=== PATIENT | female | born 1970 | race Caucasian/White ===

== ENCOUNTER 2017-11-28 11:09 | Emergency (ER) | payer OTHER ==
[2017-11-28 11:22] VITALS: RESP 18
--- NOTE | 2017-11-28 11:33 | ED ---
General Adult HPI - General Chief complaint: Anxiety Stated complaint: mental health Time Seen by Provider: 11/28/17 11:23 Source: patient, RN notes reviewed, old records reviewed Mode of arrival: ambulatory Limitations: no limitations - History of Present Illness Initial comments: 47-year-old female presents for alcohol abuse and anxiety. She is brought to emergency department after being urged by her family members to seek medical attention. She specifically denies suicidal ideation however her family member state that she has been suicidal and her family has completed a petition for mental health evaluation. Patient states her last drink was 48 hours ago. She denies any suicide attempt. She denies homicidal ideation. An admitted both for alcohol abuse and psychiatric reasons in the past. - Related Data Home Medications Medication Instructions Recorded Confirmed No Known Home Medications [No 11/28/17 11/28/17 Known Home Medications] Allergies Allergy/AdvReac Type Severity Reaction Status Date / Time No Known Allergies Allergy Verified 11/28/17 11:46 Review of Systems ROS Statement: Those systems with pertinent positive or pertinent negative responses have been documented in the HPI. ROS Other: All systems not noted in ROS Statement are negative. Past Medical History Past Medical History: Liver Disease History of Any Multi-Drug Resistant Organisms: None Reported Past Surgical History: No Surgical Hx Reported Past Psychological History: No Psychological Hx Reported Smoking Status: Current every day smoker Past Alcohol Use History: Abuse, Daily, Heavy Past Drug Use History: Cocaine, Marijuana, Methamphetamine General Exam Limitations: no limitations General appearance: alert, in no apparent distress Head exam: Present: atraumatic, normocephalic Eye exam: Present: normal appearance, PERRL ENT exam: Present: other (Saddle deformity) Neck exam: Present: normal inspection. Absent: tenderness, meningismus Respiratory exam: Present: normal lung sounds bilaterally. Absent: respiratory distress, wheezes Cardiovascular Exam: Present: regular rate, normal rhythm GI/Abdominal exam: Present: soft. Absent: distended, tenderness, guarding Extremities exam: Present: normal inspection, full ROM Neurological exam: Present: alert, oriented X3, CN II-XII intact. Absent: motor sensory deficit Psychiatric exam: Present: normal affect, normal mood Skin exam: Present: warm, dry, intact. Absent: cyanosis, diaphoretic Course Vital Signs 11/28/17 11:20 Temperature 98.5 F Pulse Rate 93 Respiratory 18 Rate Blood Pressure 159/80 O2 Sat by Pulse 98 Oximetry Medical Decision Making - Medical Decision Making 47-year-old female brought in for evaluation of alcohol abuse and concerns by her sister for mental health evaluation. Patient denies suicidal ideation. She is clinically sober and alert and oriented. She was evaluated by EPS secondary to petition that her sister filled out. She is cleared for mental health standpoint. She is given outpatient referral information for both community mental health and alcohol rehabilitation. I did reevaluate the patient, she continues to deny suicidal ideation. She is alert and oriented. She has no signs of alcohol withdrawal. She will be discharged home with outpatient follow-up. - Lab Data Lab Results 11/28/17 11/28/17 Range/Units 11:59 11:59 Urine HCG, Qual Not Detected (Not Detectd) Urine Opiates Screen Not Detected (NotDetected) Ur Oxycodone Screen Not Detected (NotDetected) Urine Methadone Screen Not Detected (NotDetected) Ur Propoxyphene Screen Not Detected (NotDetected) Ur Barbiturates Screen Not Detected (NotDetected) U Tricyclic Antidepress Not Detected (NotDetected) Ur Phencyclidine Scrn Not Detected (NotDetected) Ur Amphetamines Screen Not Detected (NotDetected) U Methamphetamines Scrn Not Detected (NotDetected) U Benzodiazepines Scrn Detected H (NotDetected) Urine Cocaine Screen Not Detected (NotDetected) U Marijuana (THC) Screen Not Detected (NotDetected) Disposition Clinical Impression: Alcohol abuse Disposition: HOME SELF-CARE Condition: Fair Instructions: Abuse of Alcohol (ED) Additional Instructions: Please follow up with community mental health, use resources for possible inpatient alcohol rehabilitation. Is patient prescribed a controlled substance at d/c from ED?: No Referrals: Robbin Casas MD [Primary Care Provider] - 1-2 days Time of Disposition: 14:46
[2017-11-28 12:26] LABS: Amphetamine Screen,Urine Not Detected (NotDetected); Barbiturate Screen,Urine Not Detected (NotDetected); Benzodiazepines Screen,Urine Detected (NotDetected); Cocaine Screen,Urine Not Detected (NotDetected); Methadone Screen, Urine Not Detected (NotDetected); Opiate Screen,Urine Not Detected (NotDetected); Oxycodone Screen, Urine Not Detected (NotDetected); Phencyclidine Screen,Urine Not Detected (NotDetected); Tricyclic Antidepressant,Urine Not Detected (NotDetected); Urn Cannabinoid Scrn Not Detected (NotDetected)
[2017-11-28 15:11] VITALS: BP 151/67; PULSE 89; TEMP 98.7
== END 2017-11-28 15:09 | disposition home or self-care (01) ==
LOC: EC 11:09
DX: F10.10 Alcohol abuse, uncomplicated (principal); F41.9 Anxiety disorder, unspecified; M95.0 Acquired deformity of nose; F17.200 Nicotine dependence, unspecified, uncomplicated
CPT/HCPCS: 80306; 81025; 82075; 99284

== ENCOUNTER 2018-06-19 09:38 | Inpatient (IN) | payer OTHER ==
--- NOTE | 2018-06-19 11:09 | XR ---
EXAMINATION TYPE: XR chest 1V DATE OF EXAM: 06/19/2018 COMPARISON: Abdomen same date HISTORY: Chest pain TECHNIQUE: Single frontal view of the chest is obtained. FINDINGS: There is no pleural effusion or pneumothorax seen. Minimal patchy density suspected lung b ases. The cardiac silhouette size is within normal limits. The osseous structures are intact. IMPRESSION: Probable subsegmental basilar atelectasis, follow-up PA and lateral chest x-ray may be o f benefit.
[2018-06-19 11:16] LABS: Appearance,Urine Clear (Clear); Bilirubin,Urine Negative (Negative); Blood,Urine Negative (Negative); Color,Urine Yellow; Glucose,Urine (UA) Negative (Negative); Ketones,Urine Negative (Negative); Leukocyte Esterase,Urine Negative (Negative); Nitrite,Urine Negative (Negative); PH, Urine 5.5 (5.0-8.0); Protein,Urine Negative (Negative); Specific Gravity,Urine 1.005 (1.001-1.035); Urobilinogen,Urine <2.0 mg/dL (<2.0)
[2018-06-19 11:19] LABS: INR 1.2 (<1.2); Partial Thromboplastin Time 29.5 sec (22.0-30.0); Prothrombin Time 12.7 sec (9.0-12.0)
--- NOTE | 2018-06-19 11:20 | XR ---
Abdomen HISTORY: Pain Frontal view of the abdomen submitted on 2 images. Lung bases show some questionable minimal subsegmental atelectatic changes. There are some air-fluid levels without bowel distention. No pneumoperitoneum. No pathologic calcification. Bone mineralizatio n is normal. There is a spinal curvature. IMPRESSION: There may be underlying ileus or enteritis, follow-up as indicated.
--- NOTE | 2018-06-19 11:25 | ED ---
Alcohol HPI - General Chief Complaint: Alcohol Stated Complaint: altered mental status Time Seen by Provider: 06/19/18 09:43 Source: patient, RN notes reviewed Mode of arrival: wheelchair Limitations: altered mental status - History of Present Illness Initial Comments: 47-year-old female presents emergency Department chief complaint of needing her belly drained. Patient states that she has cirrhosis and states that she is an alcoholic. Patient continues drinking daily just got out of rehab. Patient states her legs are swollen, and abdomen is swollen. Patient states that she's had paracentesis in the past. Patient denies any chest pain, shortness breath. Patient does admit to prior cocaine use. Denies any recent use. Patient has no dysuria no hematuria denies any diarrhea constipation. Patient states that symptoms are consistent with prior. - Related Data Home Medications Medication Instructions Recorded Confirmed No Known Home Medications 11/28/17 06/19/18 Allergies Allergy/AdvReac Type Severity Reaction Status Date / Time No Known Allergies Allergy Verified 06/19/18 09:54 Review of Systems ROS Statement: Those systems with pertinent positive or pertinent negative responses have been documented in the HPI. ROS Other: All systems not noted in ROS Statement are negative. Past Medical History Past Medical History: Liver Disease History of Any Multi-Drug Resistant Organisms: None Reported Past Surgical History: No Surgical Hx Reported Past Psychological History: No Psychological Hx Reported Smoking Status: Current every day smoker Past Alcohol Use History: Abuse, Daily, Heavy Past Drug Use History: Cocaine, Marijuana, Methamphetamine General Exam Limitations: altered mental status Course Vital Signs 06/19/18 09:38 Temperature 97.4 F L Pulse Rate 77 Respiratory 18 Rate Blood Pressure 175/85 O2 Sat by Pulse 100 Oximetry Medical Decision Making - Medical Decision Making 47-year-old female presented for multiple complaints. Patient lab work, x-ray. Patient will be admitted for alcohol intoxication, acute pancreatitis, liver failure with ascites - Lab Data Result diagrams: 06/19/18 10:30 06/19/18 10:30 Lab Results 06/19/18 06/19/18 06/19/18 Range/Units 10:30 10:30 10:30 WBC 3.9 (3.8-10.6) k/uL RBC 3.94 (3.80-5.40) m/uL Hgb 12.8 (11.4-16.0) gm/dL Hct 40.2 (34.0-46.0) % MCV 101.9 H (80.0-100.0) fL MCH 32.6 (25.0-35.0) pg MCHC 32.0 (31.0-37.0) g/dL RDW 15.9 H (11.5-15.5) % Plt Count 60 L (150-450) k/uL Neutrophils % 54 % Lymphocytes % 33 % Monocytes % 7 % Eosinophils % 2 % Basophils % 1 % Neutrophils # 2.1 (1.3-7.7) k/uL Lymphocytes # 1.3 (1.0-4.8) k/uL Monocytes # 0.3 (0-1.0) k/uL Eosinophils # 0.1 (0-0.7) k/uL Basophils # 0.1 (0-0.2) k/uL Manual Slide Review Performed RBC Morphology Normal Macrocytosis Slight PT (9.0-12.0) sec INR (<1.2) APTT (22.0-30.0) sec Sodium 146 H (137-145) mmol/L Potassium 4.0 (3.5-5.1) mmol/L Chloride 113 H (98-107) mmol/L Carbon Dioxide 26 (22-30) mmol/L Anion Gap 7 mmol/L BUN 10 (7-17) mg/dL Creatinine 0.70 (0.52-1.04) mg/dL Est GFR (CKD-EPI)AfAm >90 (>60 ml/min/1.73 sqM) Est GFR (CKD-EPI)NonAf >90 (>60 ml/min/1.73 sqM) Glucose 105 H (74-99) mg/dL Calcium 8.5 (8.4-10.2) mg/dL Total Bilirubin 1.6 H (0.2-1.3) mg/dL AST 109 H (14-36) U/L ALT 46 (9-52) U/L Alkaline Phosphatase 268 H (38-126) U/L Ammonia 32 H (<30) umol/L Total Protein 7.5 (6.3-8.2) g/dL Albumin 3.8 (3.5-5.0) g/dL Lipase 1011 H (23-300) U/L Urine Color Urine Appearance (Clear) Urine pH (5.0-8.0) Ur Specific [place] (1.001-1.035) Urine Protein (Negative) Urine Glucose (UA) (Negative) Urine Ketones (Negative) Urine Blood (Negative) Urine Nitrite (Negative) Urine Bilirubin (Negative) Urine Urobilinogen (<2.0) mg/dL Ur Leukocyte Esterase (Negative) Urine Opiates Screen (NotDetected) Ur Oxycodone Screen (NotDetected) Urine Methadone Screen (NotDetected) Ur Propoxyphene Screen (NotDetected) Ur Barbiturates Screen (NotDetected) U Tricyclic Antidepress (NotDetected) Ur Phencyclidine Scrn (NotDetected) Ur Amphetamines Screen (NotDetected) U Methamphetamines Scrn (NotDetected) U Benzodiazepines Scrn (NotDetected) Urine Cocaine Screen (NotDetected) U Marijuana (THC) Screen (NotDetected) Serum Alcohol 369 H* mg/dL 06/19/18 06/19/18 Range/Units 10:30 10:37 WBC (3.8-10.6) k/uL RBC (3.80-5.40) m/uL Hgb (11.4-16.0) gm/dL Hct (34.0-46.0) % MCV (80.0-100.0) fL MCH (25.0-35.0) pg MCHC (31.0-37.0) g/dL RDW (11.5-15.5) % Plt Count (150-450) k/uL Neutrophils % % Lymphocytes % % Monocytes % % Eosinophils % % Basophils % % Neutrophils # (1.3-7.7) k/uL Lymphocytes # (1.0-4.8) k/uL Monocytes # (0-1.0) k/uL Eosinophils # (0-0.7) k/uL Basophils # (0-0.2) k/uL Manual Slide Review RBC Morphology Macrocytosis PT 12.7 H (9.0-12.0) sec INR 1.2 H (<1.2) APTT 29.5 (22.0-30.0) sec Sodium (137-145) mmol/L Potassium (3.5-5.1) mmol/L Chloride (98-107) mmol/L Carbon Dioxide (22-30) mmol/L Anion Gap mmol/L BUN (7-17) mg/dL Creatinine (0.52-1.04) mg/dL Est GFR (CKD-EPI)AfAm (>60 ml/min/1.73 sqM) Est GFR (CKD-EPI)NonAf (>60 ml/min/1.73 sqM) Glucose (74-99) mg/dL Calcium (8.4-10.2) mg/dL Total Bilirubin (0.2-1.3) mg/dL AST (14-36) U/L ALT (9-52) U/L Alkaline Phosphatase (38-126) U/L Ammonia (<30) umol/L Total Protein (6.3-8.2) g/dL Albumin (3.5-5.0) g/dL Lipase (23-300) U/L Urine Color Yellow Urine Appearance Clear (Clear) Urine pH 5.5 (5.0-8.0) Ur Specific [place] 1.005 (1.001-1.035) Urine Protein Negative (Negative) Urine Glucose (UA) Negative (Negative) Urine Ketones Negative (Negative) Urine Blood Negative (Negative) Urine Nitrite Negative (Negative) Urine Bilirubin Negative (Negative) Urine Urobilinogen <2.0 (<2.0) mg/dL Ur Leukocyte Esterase Negative (Negative) Urine Opiates Screen Not Detected (NotDetected) Ur Oxycodone Screen Not Detected (NotDetected) Urine Methadone Screen Not Detected (NotDetected) Ur Propoxyphene Screen Not Detected (NotDetected) Ur Barbiturates Screen Not Detected (NotDetected) U Tricyclic Antidepress Not Detected (NotDetected) Ur Phencyclidine Scrn Not Detected (NotDetected) Ur Amphetamines Screen Not Detected (NotDetected) U Methamphetamines Scrn Not Detected (NotDetected) U Benzodiazepines Scrn Not Detected (NotDetected) Urine Cocaine Screen Not Detected (NotDetected) U Marijuana (THC) Screen Not Detected (NotDetected) Serum Alcohol mg/dL Disposition Clinical Impression: Alcoholic intoxication, Liver failure, Ascites, Acute pancreatitis Disposition: ADMITTED IP TO THIS [facility] Condition: Fair Referrals: Robbin Casas MD [Primary Care Provider] - 1-2 days
[2018-06-19 11:26] LABS: Amphetamine Screen,Urine Not Detected (NotDetected); Barbiturate Screen,Urine Not Detected (NotDetected); Benzodiazepines Screen,Urine Not Detected (NotDetected); Cocaine Screen,Urine Not Detected (NotDetected); Methadone Screen, Urine Not Detected (NotDetected); Opiate Screen,Urine Not Detected (NotDetected); Oxycodone Screen, Urine Not Detected (NotDetected); Phencyclidine Screen,Urine Not Detected (NotDetected); Tricyclic Antidepressant,Urine Not Detected (NotDetected); Urn Cannabinoid Scrn Not Detected (NotDetected)
[2018-06-19 11:26] LABS: ALT 46 U/L (9-52); AST 109 U/L (14-36); Albumin 3.8 g/dL (3.5-5.0); Alkaline Phosphatase 268 U/L (38-126); Anion Gap 7 mmol/L; Blood Urea Nitrogen 10 mg/dL (7-17); Calcium 8.5 mg/dL (8.4-10.2); Carbon Dioxide 26 mmol/L (22-30); Chloride 113 mmol/L (98-107); Glucose 105 mg/dL (74-99); Lipase 1011 U/L (23-300); Sodium 146 mmol/L (137-145); Total Bilirubin 1.6 mg/dL (0.2-1.3); Total Protein 7.5 g/dL (6.3-8.2)
[2018-06-19 11:37] LABS: Alcohol 369 mg/dL
[2018-06-19 11:47] LABS: Basophils # (A) 0.1 k/uL (0-0.2); Basophils % (A) 1 %; Eosinophils # (A) 0.1 k/uL (0-0.7); Eosinophils % (A) 2 %; HCT 40.2 % (34.0-46.0); HGB 12.8 gm/dL (11.4-16.0); Lymphocytes # (A) 1.3 k/uL (1.0-4.8); Lymphocytes % (A) 33 %; MCH 32.6 pg (25.0-35.0); MCV 101.9 fL (80.0-100.0); Macrocytosis Slight; Mean Platelet Volume 7.5; Monocytes # (A) 0.3 k/uL (0-1.0); Monocytes % (A) 7 %; Neutrophils # (A) 2.1 k/uL (1.3-7.7); Neutrophils % (A) 54 %; RBC 3.94 m/uL (3.80-5.40); RDW 15.9 % (11.5-15.5); WBC 3.9 k/uL (3.8-10.6)
[2018-06-19 12:14] LABS: Platelet Count 60 k/uL (150-450)
[2018-06-19] MEDS ORDERED: SODIUM CHLORIDE 0.9% 1,000 ML with MVI, ADULT NO.4 WITH VIT K 10 ML, THIAMINE 100 MG, F... IV ONE ×4 (12:16)
[2018-06-19] MEDS ORDERED: LORazepam 2 MG/ML INJ IV PRN ×2 (12:16)
[2018-06-19] MEDS ORDERED: ONDANSETRON 4 MG/2 ML VIAL IVP PRN (12:18)
[2018-06-19] MEDS ORDERED: NALOXONE 0.4 MG/ML 1 ML VIAL IV PRN (12:18)
[2018-06-19] MEDS ORDERED: PANTOPRAZOLE 40 MG/10 ML VIAL IVP SCH (15:00)
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
--- NOTE | 2018-06-19 16:36 | US ---
EXAMINATION TYPE: US abdomen limited DATE OF EXAM: 06/19/2018 COMPARISON: NONE CLINICAL HISTORY: 47-year-old female distended abdomen, assess for ascites. TECHNIQUE: Multiple sonographic images of the 4 abdominal quadrants for assessment of ascites fluid. FINDINGS: All 4 quadrants scanned, no free fluid identified. Borderline enlarged spleen noted at 13.6 cm. IMPRESSION: No abdominal ascites identified. Borderline splenomegaly at 13.6 cm.
[2018-06-19] MEDS: THIAMINE 100 MG TAB PO SCH (17:58)
[2018-06-19] MEDS: LORazepam 2 MG/ML INJ IV PRN ×2 (18:07→22:09)
[2018-06-19] MEDS: FUROSEMIDE 10 MG/ML 4 ML VIAL IV SCH (22:09)
[2018-06-19] MEDS: PANTOPRAZOLE 40 MG/10 ML VIAL IVP SCH (22:09)
[2018-06-20] MEDS: LORazepam 2 MG/ML INJ IV PRN ×5 (03:53→21:34)
[2018-06-20] MEDS: PANTOPRAZOLE 40 MG/10 ML VIAL IVP SCH (08:23)
[2018-06-20] MEDS: FUROSEMIDE 10 MG/ML 4 ML VIAL IV SCH ×2 (08:23→21:34)
[2018-06-20 08:29] LABS: ALT 41 U/L (9-52); AST 94 U/L (14-36); Albumin 3.3 g/dL (3.5-5.0); Alkaline Phosphatase 201 U/L (38-126); Anion Gap 5 mmol/L; Blood Urea Nitrogen 10 mg/dL (7-17); Calcium 8.2 mg/dL (8.4-10.2); Carbon Dioxide 30 mmol/L (22-30); Chloride 108 mmol/L (98-107); Glucose 76 mg/dL (74-99); Potassium 4.1 mmol/L (3.5-5.1); Sodium 143 mmol/L (137-145); Total Bilirubin 2.3 mg/dL (0.2-1.3)
--- NOTE | 2018-06-20 11:45 | P.PN ---
Subjective Patient is admitted for alcohol overdose on alcohol withdrawal. Patient is being treated for alcoholic gastritis as well. Patient is coming of generalized body aches will obtain influenza testing. Patient's abdominal ultrasound did not show much of ascites will continue with Lasix for mild the volume overload repeat developed lites tomorrow. Once her withdrawals are better patient will be discharged home counseling regarding alcohol use was provided. Constitutional: Bit tired Cardio vascular: denied any chest pain, palpitations Gastrointestinal denied any nausea vomiting Pulmonary: Denied any shortness of breath cough Neurologic denied any new focal deficits All inpatient medications were reviewed and appropriate changes in these medications as dictated in the interval history and assessment and plan. Objective - Vital Signs Vital signs: Vital Signs Temp 98.3 F 06/20/18 11:33 Pulse 86 06/20/18 11:33 Resp 17 06/20/18 11:33 BP 161/85 06/20/18 11:33 Pulse Ox 95 06/20/18 11:33 Intake & Output 06/19/18 06/20/18 06/20/18 18:59 06:59 18:59 Weight 72.575 kg Other: # Voids 5 - Exam PHYSICAL EXAMINATION: GENERAL: The patient is alert and oriented x3, not in any acute distress. Well developed, well nourished. Does have some withdrawals and requiring Ativan often HEENT: Pupils are round and equally reacting to light. EOMI. No scleral icterus. No conjunctival pallor. Normocephalic, atraumatic. No pharyngeal erythema. No thyromegaly. CARDIOVASCULAR: S1 and S2 present. No murmurs, rubs, or gallops. PULMONARY: Chest is clear to auscultation, no wheezing or crackles. ABDOMEN: Soft, distended but with positive shifting dullness does have mild bilateral pedal edema MUSCULOSKELETAL: No joint swelling or deformity. EXTREMITIES: No cyanosis, clubbing, NEUROLOGICAL: Gross neurological examination did not reveal any focal deficits. SKIN: No rashes. - Labs CBC & Chem 7: 06/19/18 10:30 06/20/18 06:38 Labs: Abnormal Lab Results - Last 24 Hours (Table) 06/19/18 06/20/18 Range/Units 10:30 06:38 MCV 101.9 H (80.0-100.0) fL RDW 15.9 H (11.5-15.5) % Plt Count 60 L (150-450) k/uL Chloride 108 H (98-107) mmol/L Calcium 8.2 L (8.4-10.2) mg/dL Total Bilirubin 2.3 H (0.2-1.3) mg/dL AST 94 H (14-36) U/L Alkaline Phosphatase 201 H (38-126) U/L Albumin 3.3 L (3.5-5.0) g/dL Assessment and Plan Plan: -Nausea vomiting seconded alcoholic gastritis my suspicion is low for pancreatitis no significant ascites but does have some edema in extremity is because of which I'll continue with Lasix. Acute alcoholic hepatitis. -Alcoholic cirrhosis counseling regarding alcohol use was provided. Continue with Lasix repeat compressive metabolic profile tomorrow I do not believe patient has hepatic encephalopathy at this time. Continue with Lasix -Alcohol withdrawal management: Patient is requiring Ativan often continue with the CIWA protocol Ativan.
[2018-06-20] MEDS: THIAMINE 100 MG TAB PO SCH ×2 (12:09→18:04)
[2018-06-20] MEDS: MORPHINE SULFATE 2 MG/ML SYRINGE IVP PRN ×2 (15:39→21:35)
[2018-06-20] MEDS: PANTOPRAZOLE 40 MG TABLET PO SCH (18:04)
[2018-06-21] MEDS: MORPHINE SULFATE 2 MG/ML SYRINGE IVP PRN (06:24)
[2018-06-21] MEDS: LORazepam 2 MG/ML INJ IV PRN ×4 (06:24→23:31)
[2018-06-21] MEDS: FUROSEMIDE 10 MG/ML 4 ML VIAL IV SCH ×2 (07:18→23:31)
[2018-06-21] MEDS: PANTOPRAZOLE 40 MG TABLET PO SCH ×2 (07:18→17:35)
[2018-06-21 07:44] LABS: HCT 38.2 % (34.0-46.0); HGB 12.7 gm/dL (11.4-16.0); MCH 33.5 pg (25.0-35.0); MCHC 33.3 g/dL (31.0-37.0); MCV 100.7 fL (80.0-100.0); Macrocytosis Slight; Mean Platelet Volume 9.1; WBC 2.6 k/uL (3.8-10.6)
[2018-06-21 08:06] LABS: Platelet Count 36 k/uL (150-450)
[2018-06-21 08:08] LABS: ALT 32 U/L (9-52); AST 72 U/L (14-36); Albumin 3.3 g/dL (3.5-5.0); Alkaline Phosphatase 111 U/L (38-126); Anion Gap 6 mmol/L; Blood Urea Nitrogen 12 mg/dL (7-17); Calcium 8.3 mg/dL (8.4-10.2); Carbon Dioxide 29 mmol/L (22-30); Chloride 103 mmol/L (98-107); Glucose 111 mg/dL (74-99); Potassium 3.2 mmol/L (3.5-5.1); Sodium 138 mmol/L (137-145); Total Bilirubin 4.3 mg/dL (0.2-1.3); Total Protein 7.2 g/dL (6.3-8.2)
[2018-06-21] MEDS: THIAMINE 100 MG TAB PO SCH ×2 (11:34→16:49)
[2018-06-21] MEDS ORDERED: Potassium Replacement Protocol 1 EACH MISC MISCELLANE PRN ×2 (14:19→16:35)
--- NOTE | 2018-06-21 15:11 | P.PN ---
Subjective Patient is admitted for alcohol overdose on alcohol withdrawal. Patient is being treated for alcoholic gastritis as well. Patient is coming of generalized body aches will obtain influenza testing. Patient's abdominal ultrasound did not show much of ascites will continue with Lasix for mild the volume overload repeat BMP tomorrow. Once her withdrawals are better patient will be discharged home counseling regarding alcohol use was provided. 06/21/2018 Patient is bit confused patient bilirubin is going up. Patient is not requiring as much Ativan. Trying to avoid opiates potassium is low which was supplemented Constitutional: Bit tired Cardio vascular: denied any chest pain, palpitations Gastrointestinal denied any nausea vomiting Pulmonary: Denied any shortness of breath cough Neurologic denied any new focal deficits All inpatient medications were reviewed and appropriate changes in these medications as dictated in the interval history and assessment and plan. Objective - Vital Signs Vital signs: Vital Signs Temp 97.2 F L 06/21/18 11:47 Pulse 87 06/21/18 11:47 Resp 17 06/21/18 11:47 BP 126/67 06/21/18 11:47 Pulse Ox 98 06/21/18 11:47 Intake & Output 06/20/18 06/21/18 06/21/18 18:59 06:59 18:59 Intake Total 120 1090 Output Total 1500 Balance 120 -410 Weight 73.5 kg 73.5 kg Intake: Oral 120 1090 Output: Urine 1500 Other: Voiding Method Toilet Toilet Bedside Commode Bedside Commode Bedside Commode # Voids 5 2 3 - Exam PHYSICAL EXAMINATION: GENERAL: The patient is bit confused today, not in any acute distress. Well developed, well nourished. Does have some withdrawals and requiring Ativan often HEENT: Pupils are round and equally reacting to light. EOMI. No scleral icterus. No conjunctival pallor. Normocephalic, atraumatic. No pharyngeal erythema. No thyromegaly. CARDIOVASCULAR: S1 and S2 present. No murmurs, rubs, or gallops. PULMONARY: Chest is clear to auscultation, no wheezing or crackles. ABDOMEN: Soft, distended but with positive shifting dullness does have mild bilateral pedal edema MUSCULOSKELETAL: No joint swelling or deformity. EXTREMITIES: No cyanosis, clubbing, NEUROLOGICAL: Gross neurological examination did not reveal any focal deficits. SKIN: No rashes. - Labs CBC & Chem 7: 06/21/18 07:11 06/21/18 07:11 Labs: Abnormal Lab Results - Last 24 Hours (Table) 06/21/18 06/21/18 Range/Units 07:11 07:11 WBC 2.6 L (3.8-10.6) k/uL MCV 100.7 H (80.0-100.0) fL Plt Count 36 L (150-450) k/uL Potassium 3.2 L (3.5-5.1) mmol/L Glucose 111 H (74-99) mg/dL Calcium 8.3 L (8.4-10.2) mg/dL Total Bilirubin 4.3 H (0.2-1.3) mg/dL AST 72 H (14-36) U/L Albumin 3.3 L (3.5-5.0) g/dL Assessment and Plan Plan: -Nausea vomiting seconded alcoholic gastritis my suspicion is low for pancreatitis no significant ascites but does have some edema in extremity is because of which I'll continue with Lasix. -Hypokalemia secondary to Lasix potassium will be supplemented -Altered mental status, confusion secondary to alcohol withdrawal and metabolic encephalopathy Acute alcoholic hepatitis. -Alcoholic cirrhosis counseling regarding alcohol use was provided. Continue with Lasix repeat compressive metabolic profile tomorrow I do not believe patient has hepatic encephalopathy at this time. Continue with Lasix -Alcohol withdrawal management: Patient is requiring Ativan often continue with the CIWA protocol Ativan.
[2018-06-21] MEDS: POTASSIUM CHLORIDE ER 20 MEQ TAB.ER PO SCH ×2 (16:49→17:35)
[2018-06-22 05:17] VITALS: RESP 16
[2018-06-22] MEDS: LORazepam 2 MG/ML INJ IV PRN (05:48)
[2018-06-22] MEDS: PANTOPRAZOLE 40 MG TABLET PO SCH (07:36)
[2018-06-22] MEDS: FUROSEMIDE 10 MG/ML 4 ML VIAL IV SCH (07:36)
[2018-06-22 07:49] LABS: HCT 42.8 % (34.0-46.0); HGB 13.7 gm/dL (11.4-16.0); MCH 32.4 pg (25.0-35.0); MCV 101.3 fL (80.0-100.0); Macrocytosis Slight; Mean Platelet Volume 8.5; RBC 4.23 m/uL (3.80-5.40); RDW 15.4 % (11.5-15.5); WBC 3.8 k/uL (3.8-10.6)
[2018-06-22 07:53] LABS: Platelet Count 52 k/uL (150-450)
[2018-06-22 08:15] LABS: ALT 36 U/L (9-52); AST 68 U/L (14-36); Albumin 3.8 g/dL (3.5-5.0); Alkaline Phosphatase 153 U/L (38-126); Anion Gap 8 mmol/L; Blood Urea Nitrogen 15 mg/dL (7-17); Calcium 8.8 mg/dL (8.4-10.2); Carbon Dioxide 28 mmol/L (22-30); Chloride 103 mmol/L (98-107); Glucose 129 mg/dL (74-99); Potassium 3.6 mmol/L (3.5-5.1); Sodium 139 mmol/L (137-145); Total Bilirubin 3.6 mg/dL (0.2-1.3); Total Protein 8.1 g/dL (6.3-8.2)
[2018-06-22] MEDS: THIAMINE 100 MG TAB PO SCH (11:44)
[2018-06-22] MEDS ORDERED: POTASSIUM CHLORIDE ER 20 MEQ TAB.ER PO STA (12:16)
[2018-06-22 12:29] VITALS: BP 147/87; PULSE 96; TEMP 97.9
--- NOTE | 2018-06-22 13:01 | P.DS ---
Providers Date of admission: 06/19/18 12:13 Attending physician: Rl Cid Primary care physician: Robbin Casas MD Hospital Course: Patient is admitted for alcohol overdose on alcohol withdrawal. Patient is being treated for alcoholic gastritis as well. Patient is coming of generalized body aches will obtain influenza testing. Patient's abdominal ultrasound did not show much of ascites will continue with Lasix for mild the volume overload repeat BMP tomorrow. Once her withdrawals are better patient will be discharged home counseling regarding alcohol use was provided. 06/21/2018 Patient is bit confused patient bilirubin is going up. Patient is not requiring as much Ativan. Trying to avoid opiates potassium is low which was supplemented 06/22/2018 Patient is not requiring Ativan often extensive counseling regarding alcohol abuse was provided patient will be discharged on Lasix, Aldactone for acidosis and volume overload doesn't have any evidence of spontaneous bacterial peritonitis are hepatic encephalopathy. Patient will be discharged on Ativan for 3 more days for withdrawals, thiamine multivitamin supplementation and Prilosec for gastritis.. Serum bilirubin is coming down alcoholic hepatitis is bit better PHYSICAL EXAMINATION: GENERAL: The patient is alert and oriented x3, not in any acute distress. Well developed, well nourished. HEENT: Pupils are round and equally reacting to light. EOMI. No scleral icterus. No conjunctival pallor. Normocephalic, atraumatic. No pharyngeal erythema. No thyromegaly. CARDIOVASCULAR: S1 and S2 present. No murmurs, rubs, or gallops. PULMONARY: Chest is clear to auscultation, no wheezing or crackles. ABDOMEN: Soft, nontender, nondistended, normoactive bowel sounds. No palpable organomegaly. MUSCULOSKELETAL: No joint swelling or deformity. EXTREMITIES: No cyanosis, clubbing, or pedal edema. NEUROLOGICAL: Gross neurological examination did not reveal any focal deficits. SKIN: No rashes. Assessment and Plan Plan: -Nausea vomiting secondary to alcoholic gastritis -Altered mental status, confusion secondary to alcohol withdrawal and metabolic encephalopathy, resolved now Acute alcoholic hepatitis. -Alcoholic cirrhosis counseling regarding alcohol use was provided. -Alcohol withdrawal Patient Condition at Discharge: Fair Plan - Discharge Summary Discharge Rx Participant: No New Discharge Prescriptions: New Furosemide [Lasix] 40 mg PO DAILY #30 tablet LORazepam [Ativan] 1 mg PO QID PRN 3 Days #12 tab PRN Reason: Alcohol Withdrawal Spironolactone [Aldactone] 50 mg PO DAILY #30 tab Thiamine [Vitamin B-1] 100 mg PO DAILY #30 tablet Omeprazole [PriLOSEC] 40 mg PO AC-BRKFST #30 capsule. Discharge Medication List Furosemide [Lasix] 40 mg PO DAILY #30 tablet 06/22/18 [Rx] LORazepam [Ativan] 1 mg PO QID PRN 3 Days #12 tab 06/22/18 [Rx] Omeprazole [PriLOSEC] 40 mg PO AC-BRKFST #30 capsule. 06/22/18 [Rx] Spironolactone [Aldactone] 50 mg PO DAILY #30 tab 06/22/18 [Rx] Thiamine [Vitamin B-1] 100 mg PO DAILY #30 tablet 06/22/18 [Rx] Follow up Appointment(s)/Referral(s): Robbin Casas MD [Primary Care Provider] - 3 Days (patient to call on Saturday to schedule follow-up appointment. Office is currently closed) Ambulatory/Diagnostic Orders: Comprehensive Metabolic Panel [LAB.AMB] Time Frame: 3 Days, Location: None Selected Patient Instructions/Handouts: Spironolactone (By mouth), Furosemide (By mouth) , Lorazepam (By mouth), Omeprazole (By mouth), Thiamine (By mouth), Pancreatitis (DC), Acute Liver Failure (DC), Alcohol Intoxication (DC), Ascites (DC) Discharge Disposition: HOME SELF-CARE
== END 2018-06-22 14:23 | disposition home or self-care (01) | DRG 917 ==
LOC: EC 09:38 → 3NMEDONC 12:13
PROVIDERS: ADMIT Internal Medicine; ATTEND Internal Medicine
DX: T51.0X1A Toxic effect of ethanol, accidental (unintentional), initial encounter (principal); G93.41 Metabolic encephalopathy; F10.239 Alcohol dependence with withdrawal, unspecified; K29.70 Gastritis, unspecified, without bleeding; K29.20 Alcoholic gastritis without bleeding; F10.229 Alcohol dependence with intoxication, unspecified; F17.200 Nicotine dependence, unspecified, uncomplicated; K70.11 Alcoholic hepatitis with ascites; K70.31 Alcoholic cirrhosis of liver with ascites; E87.6 Hypokalemia; T50.1X5A Adverse effect of loop [high-ceiling] diuretics, initial encounter; Z87.01 Personal history of pneumonia (recurrent); Z71.41 Alcohol abuse counseling and surveillance of alcoholic; Y92.239 Unspecified place in hospital as the place of occurrence of the external cause
CPT/HCPCS: 36415; 71045; 74018; 76705; 80053; 80306; 80320; 81003; 82140; 83690; 83880; 85025; 85027; 85610; 85730; 87502; 96365; 96375; 99285

== ENCOUNTER 2018-07-03 14:40 | Inpatient (IN) | payer OTHER ==
[2018-07-03] MEDS ORDERED: SODIUM CHLORIDE 0.9% 2,000 ML IV STA (15:01)
[2018-07-03] MEDS ORDERED: ONDANSETRON 4 MG/2 ML VIAL IVP STA (15:02)
[2018-07-03 15:54] LABS: INR 1.3 (<1.2); Partial Thromboplastin Time 31.2 sec (22.0-30.0); Prothrombin Time 13.5 sec (9.0-12.0)
[2018-07-03 15:55] LABS: Basophils # (A) 0.1 k/uL (0-0.2); Basophils % (A) 1 %; Eosinophils # (A) 0.1 k/uL (0-0.7); Eosinophils % (A) 2 %; HGB 13.2 gm/dL (11.4-16.0); Lymphocytes % (A) 21 %; MCH 32.3 pg (25.0-35.0); MCV 97.8 fL (80.0-100.0); Mean Platelet Volume 8.4; Monocytes # (A) 0.3 k/uL (0-1.0); Monocytes % (A) 6 %; Neutrophils # (A) 3.3 k/uL (1.3-7.7); Neutrophils % (A) 68 %; RBC 4.09 m/uL (3.80-5.40); WBC 4.8 k/uL (3.8-10.6)
[2018-07-03 15:57] LABS: ALT 46 U/L (9-52); AST 108 U/L (14-36); Alkaline Phosphatase 144 U/L (38-126); Amylase 83 U/L (30-110); Anion Gap 11 mmol/L; Blood Urea Nitrogen 10 mg/dL (7-17); Calcium 8.6 mg/dL (8.4-10.2); Carbon Dioxide 26 mmol/L (22-30); Chloride 104 mmol/L (98-107); Glucose 130 mg/dL (74-99); Lipase 682 U/L (23-300); Magnesium 1.5 mg/dL (1.6-2.3); Potassium 3.5 mmol/L (3.5-5.1); Sodium 141 mmol/L (137-145); Total Bilirubin 2.2 mg/dL (0.2-1.3); Total Protein 8.4 g/dL (6.3-8.2)
[2018-07-03 16:02] LABS: Alcohol 285 mg/dL
[2018-07-03 16:30] LABS: Large Platelets Present; Platelet Count 38 k/uL (150-450)
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
[2018-07-03] MEDS ORDERED: ONDANSETRON 4 MG/2 ML VIAL IVP PRN (17:22)
[2018-07-03] MEDS ORDERED: LORazepam 2 MG/ML INJ IV PRN (17:23)
[2018-07-03 17:33] LABS: Appearance,Urine Clear (Clear); Bilirubin,Urine Negative (Negative); Blood,Urine Negative (Negative); Color,Urine Yellow; Glucose,Urine (UA) Negative (Negative); Ketones,Urine Negative (Negative); Leukocyte Esterase,Urine Negative (Negative); Nitrite,Urine Negative (Negative); PH, Urine 6.5 (5.0-8.0); Protein,Urine Negative (Negative); Specific Gravity,Urine 1.005 (1.001-1.035); Urobilinogen,Urine <2.0 mg/dL (<2.0)
--- NOTE | 2018-07-03 17:53 | XR ---
EXAMINATION TYPE: XR KUB DATE OF EXAM: 07/03/2018 COMPARISON: 06/19/2018 HISTORY: Pain and vomiting, history cirrhosis TECHNIQUE: 2 upright views FINDINGS: Visualized lung bases and pleural spaces are negative. No pneumoperitoneum or pneumatosis. The bowel gas pattern is normal. No definite acute soft tissue or skeletal findings. IMPRESSION: Negative examination.
[2018-07-03] MEDS ORDERED: SODIUM CHLORIDE 0.9% 1,000 ML with MVI, ADULT NO.4 WITH VIT K 10 ML, THIAMINE 100 MG, F... IV ONE ×4 (18:00)
[2018-07-03] MEDS: LORazepam 2 MG/ML INJ IV PRN ×2 (18:25→22:13)
[2018-07-04] MEDS: THIAMINE 100 MG TAB PO SCH ×3 (04:31→16:29)
[2018-07-04] MEDS: LORazepam 2 MG/ML INJ IV PRN ×4 (04:33→22:31)
[2018-07-04] MEDS: PANTOPRAZOLE 40 MG/10 ML VIAL IV SCH (09:03)
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
[2018-07-04] MEDS: MAGNESIUM SULFATE-D5W PMX 1 GM in DEXTROSE/WATER 1 100ML.BAG IVPB SCH ×2 (13:24→16:28)
[2018-07-05] MEDS: LORazepam 2 MG/ML INJ IV PRN ×2 (04:09→22:21)
[2018-07-05] MEDS: PANTOPRAZOLE 40 MG/10 ML VIAL IV SCH (09:31)
[2018-07-05] MEDS ORDERED: LORazepam 1 MG TAB ONE (18:10)
[2018-07-06] MEDS: LORazepam 2 MG/ML INJ IV PRN ×3 (06:25→20:03)
[2018-07-06] MEDS: THIAMINE 100 MG TAB PO SCH ×3 (06:26→16:14)
[2018-07-06] MEDS: PANTOPRAZOLE 40 MG/10 ML VIAL IV SCH (09:48)
--- NOTE | 2018-07-06 10:49 | P.PN ---
Subjective Progress Note Date: 07/05/18 Patient the is receiving Ativan frequently for alcohol withdrawals drowsy. Willing to go to alcohol rehabilitation program after discharge. Constitutional: Denied any fatigue denied any fever. Cardio vascular: denied any chest pain, palpitations Gastrointestinal denied any nausea vomiting Pulmonary: Denied any shortness of breath cough Neurologic denied any new focal deficits All inpatient medications were reviewed and appropriate changes in these medications as dictated in the interval history and assessment and plan. Objective - Vital Signs Vital signs: Vital Signs Temp 97.9 F 07/06/18 05:00 Pulse 85 07/06/18 05:00 Resp 16 07/06/18 05:00 BP 148/70 07/06/18 05:00 Pulse Ox 96 07/06/18 05:00 Intake & Output 07/05/18 07/06/18 07/06/18 18:59 06:59 18:59 Intake Total 700 Balance 700 Intake: Oral 700 Other: Voiding Method Toilet Toilet # Voids 1 - Exam PHYSICAL EXAMINATION: GENERAL: The patient is drowsy but confused, not in any acute distress. Well developed, well nourished. HEENT: Pupils are round and equally reacting to light. EOMI. No scleral icterus. No conjunctival pallor. Normocephalic, atraumatic. No pharyngeal erythema. No thyromegaly. CARDIOVASCULAR: S1 and S2 present. No murmurs, rubs, or gallops. PULMONARY: Chest is clear to auscultation, no wheezing or crackles. ABDOMEN: Soft, nontender, nondistended, normoactive bowel sounds. No palpable organomegaly. MUSCULOSKELETAL: No joint swelling or deformity. EXTREMITIES: No cyanosis, clubbing, or pedal edema. NEUROLOGICAL: Gross neurological examination did not reveal any focal deficits. SKIN: No rashes. - Labs CBC & Chem 7: 07/03/18 14:55 07/03/18 14:55 Assessment and Plan Plan: -Alcoholic gastritis: Patient is on Protonix which will be continued -Alcohol abuse: Counseling was provided Alcohol withdrawal patient will be on Ativan CIWA protocol, toxic and metabolic encephalopathy alcohol withdrawal -Alcoholic cirrhosis and acute alcoholic hepatitis, discontinue IV fluids -Mild nonspecific elevation of lipase symptomatology is not consistent with pancreatitis -Thrombocytopenia from chronic alcoholism continue with thiamine multivitamin supplementation Will not require any pharmacologic DVT prophylaxis as her INR is already 1.3 and is not a candidate for Lovenox or heparin because of her platelet count being only 38,000.
--- NOTE | 2018-07-06 17:00 | P.PN ---
Subjective Patient the is receiving Ativan frequently for alcohol withdrawals drowsy. Willing to go to alcohol rehabilitation program after discharge. 07/06/2018 Alcohol withdrawal symptoms improved and probably can be discharged tomorrow Constitutional: Denied any fatigue denied any fever. Cardio vascular: denied any chest pain, palpitations Gastrointestinal denied any nausea vomiting Pulmonary: Denied any shortness of breath cough Neurologic denied any new focal deficits All inpatient medications were reviewed and appropriate changes in these medications as dictated in the interval history and assessment and plan. Objective - Vital Signs Vital signs: Vital Signs Temp 97.4 F L 07/06/18 12:56 Pulse 96 07/06/18 12:56 Resp 16 07/06/18 12:56 BP 134/71 07/06/18 12:56 Pulse Ox 93 L 07/06/18 12:56 Intake & Output 07/05/18 07/06/18 07/06/18 18:59 06:59 18:59 Intake Total 700 Balance 700 Intake: Oral 700 Other: Voiding Method Toilet Toilet Toilet # Voids 1 3 - Exam PHYSICAL EXAMINATION: GENERAL: The patient is drowsy but confused, not in any acute distress. Well developed, well nourished. HEENT: Pupils are round and equally reacting to light. EOMI. No scleral icterus. No conjunctival pallor. Normocephalic, atraumatic. No pharyngeal erythema. No thyromegaly. CARDIOVASCULAR: S1 and S2 present. No murmurs, rubs, or gallops. PULMONARY: Chest is clear to auscultation, no wheezing or crackles. ABDOMEN: Soft, nontender, nondistended, normoactive bowel sounds. No palpable organomegaly. MUSCULOSKELETAL: No joint swelling or deformity. EXTREMITIES: No cyanosis, clubbing, or pedal edema. NEUROLOGICAL: Gross neurological examination did not reveal any focal deficits. SKIN: No rashes. - Labs CBC & Chem 7: 07/03/18 14:55 07/03/18 14:55 Assessment and Plan Plan: -Alcoholic gastritis: Patient is on Protonix which will be continued -Alcohol abuse: Counseling was provided Alcohol withdrawal patient will be on Ativan CIWA protocol, toxic and metabolic encephalopathy alcohol withdrawal -Alcoholic cirrhosis and acute alcoholic hepatitis, discontinue IV fluids -Mild nonspecific elevation of lipase symptomatology is not consistent with pancreatitis -Thrombocytopenia from chronic alcoholism continue with thiamine multivitamin supplementation Will not require any pharmacologic DVT prophylaxis as her INR is already 1.3 and is not a candidate for Lovenox or heparin because of her platelet count being only 38,000.
[2018-07-06 20:36] VITALS: PULSE 79
[2018-07-07 08:08] LABS: ALT 31 U/L (9-52); AST 44 U/L (14-36); Albumin 3.1 g/dL (3.5-5.0); Alkaline Phosphatase 126 U/L (38-126); Anion Gap 4 mmol/L; Blood Urea Nitrogen 9 mg/dL (7-17); Calcium 8.9 mg/dL (8.4-10.2); Carbon Dioxide 23 mmol/L (22-30); Chloride 110 mmol/L (98-107); Glucose 101 mg/dL (74-99); Potassium 4.1 mmol/L (3.5-5.1); Sodium 137 mmol/L (137-145); Total Bilirubin 2.4 mg/dL (0.2-1.3); Total Protein 6.9 g/dL (6.3-8.2)
[2018-07-07] MEDS: PANTOPRAZOLE 40 MG/10 ML VIAL IV SCH (10:08)
[2018-07-07 11:36] VITALS: BP 116/65; RESP 18; TEMP 98
[2018-07-07] MEDS: THIAMINE 100 MG TAB PO SCH (11:38)
--- NOTE | 2018-07-07 14:58 | P.DS ---
Providers Date of admission: 07/04/18 14:33 Expected date of discharge: 07/07/18 Attending physician: Yoanna Cid Primary care physician: Robbin Casas MD Hospital Course: Final Diagnoses: -Alcoholic gastritis -Alcohol abuse: Counseling was provided Alcohol withdrawal - toxic and metabolic encephalopathy ,alcohol withdrawal -Alcoholic cirrhosis and acute alcoholic hepatitis -Mild nonspecific elevation of lipase symptomatology is not consistent with pancreatitis -Thrombocytopenia from chronic alcoholism Hospital course:47-year-old female came came in for alcohol intoxication it was documented patient had abdominal pain and she denied any abdominal pain to me she denied nausea vomiting to me. Patient is known patient to me patient does have alcoholic cirrhosis patient was treated recently for alcohol intoxication and alcohol withdrawal subsequently patient was discharged home. Patient wanted to quit alcohol this time. Extensive counseling was provided and will as the patient did go to alcohol rehabilitation program after discharge from here. Patient is already having withdrawals and patient is bit drowsy from Ativan. Maintained on gentle IV fluid hydration, CIWa protocol, thiamine, multivitamin supplementation,PPI. Significant clinical improvement. States willing to go to alcohol rehabilitation program after discharge. Patient is being discharged home in a stable condition with guarded prognosis. EXAMINATION: GENERAL: The patient is sitting up at side of bed, alert and oriented 3, no acute distress CARDIOVASCULAR: S1 and S2 present. No murmurs, rubs, or gallops. PULMONARY: Chest is clear to auscultation, no wheezing or crackles. ABDOMEN: Soft, nontender, nondistended, normoactive bowel sounds. No palpable organomegaly. NEUROLOGICAL: Gross neurological examination did not reveal any focal deficits. The impression and plan of care has been dictated as directed. : I performed a history and examination of this patient, discussed the same with the dictator. I agree with the dictator's note ,documented as a scribe. Any additional findings or plans will be noted. Time taken: 35 minutes Patient Condition at Discharge: Stable Plan - Discharge Summary Discharge Rx Participant: Yes New Discharge Prescriptions: New Multivitamins, Thera [Multivitamin (formulary)] 1 tab PO DAILY #30 tablet Folic Acid 1 mg PO DAILY #30 tablet Continue Furosemide [Lasix] 40 mg PO DAILY #30 tablet Spironolactone [Aldactone] 50 mg PO DAILY #30 tab Thiamine [Vitamin B-1] 100 mg PO DAILY #30 tablet Omeprazole [PriLOSEC] 40 mg PO AC-BRKFST #30 capsule. Discharge Medication List Furosemide [Lasix] 40 mg PO DAILY #30 tablet 06/22/18 [Rx] Omeprazole [PriLOSEC] 40 mg PO AC-BRKFST #30 capsule. 06/22/18 [Rx] Spironolactone [Aldactone] 50 mg PO DAILY #30 tab 06/22/18 [Rx] Thiamine [Vitamin B-1] 100 mg PO DAILY #30 tablet 06/22/18 [Rx] Folic Acid 1 mg PO DAILY #30 tablet 07/07/18 [Rx] Multivitamins, Thera [Multivitamin (formulary)] 1 tab PO DAILY #30 tablet [Rx] Follow up Appointment(s)/Referral(s): Robbin Casas MD [Primary Care Provider] - 3 Days Vivek Finley MD [STAFF PHYSICIAN] - 2 Weeks Ambulatory/Diagnostic Orders: Complete Blood Count w/diff [LAB.AMB] Time Frame: 3 Days, Location: None Selected Patient Instructions/Handouts: Folic Acid (By mouth), Multivitamins, Adult Formula (By mouth), Acute Liver Failure (DC), Alcohol Intoxication (DC), Abuse of Alcohol (DC), Alcohol Withdrawal (DC), Ascites (DC) Activity/Diet/Wound Care/Special Instructions: Pt would like discharge RX at discharge NO smoking, No etoh, No rec. drug use AA Discharge Disposition: HOME SELF-CARE
[2018-07-08] MEDS ORDERED: PANTOPRAZOLE 40 MG TABLET PO SCH (09:00)
== END 2018-07-07 12:30 | disposition home or self-care (01) | DRG 896 ==
LOC: EC 14:40 → 3NMEDONC 17:31 → OBSVTOIN 07-04 14:33
PROVIDERS: ADMIT Internal Medicine; ATTEND Internal Medicine
DX: F10.229 Alcohol dependence with intoxication, unspecified (principal); K29.20 Alcoholic gastritis without bleeding; F10.239 Alcohol dependence with withdrawal, unspecified; Y90.8 Blood alcohol level of 240 mg/100 ml or more; G92 Toxic encephalopathy; D69.59 Other secondary thrombocytopenia; F17.210 Nicotine dependence, cigarettes, uncomplicated; Z71.41 Alcohol abuse counseling and surveillance of alcoholic; K21.9 Gastro-esophageal reflux disease without esophagitis; K70.11 Alcoholic hepatitis with ascites; K70.31 Alcoholic cirrhosis of liver with ascites; K72.90 Hepatic failure, unspecified without coma; Z79.899 Other long term (current) drug therapy; Z83.49 Family history of other endocrine, nutritional and metabolic diseases; F14.11 Cocaine abuse, in remission; F11.11 Opioid abuse, in remission; F15.11 Other stimulant abuse, in remission; Z87.01 Personal history of pneumonia (recurrent)
CPT/HCPCS: 36415; 74018; 80053; 80320; 81003; 82150; 83605; 83690; 83735; 85025; 85610; 85730; 96361; 96374; 96375; 99285